=== PATIENT | female | born 1985 | race Caucasian/White ===

== ENCOUNTER 2019-09-28 17:20 | Emergency (ER) | payer OTHER, SELFPAY ==
[2019-09-28 17:27] VITALS: BP 155/80; PULSE 86; RESP 16; TEMP 36.3; O2SAT 99
--- NOTE | 2019-09-28 17:27 | ED_ITS ---
HPI - Fever General Chief Complaint: Fever Stated Complaint: flu like s/s, gege a+ Time Seen by Provider: 09/28/19 17:22 Source: patient Mode of arrival: ambulatory Limitations: no limitations History of Present Illness HPI Narrative: Patient is a 34-year-old female who presents with 3 to 4 days duration of chills body aches noting that her child was just diagnosed with influenza. Patient without vomiting or diarrhea. Patient on arrival resting comfortably in the room in no distress. Patient is taking [id number] medications with some improvement. Patient notes aching pain that is generalized Related Data Allergies Allergy/AdvReac Type Severity Reaction Status Date / Time No Known Allergies Allergy Verified 09/28/19 17:26 Review of Systems Review of Systems: All systems reviewed & are unremarkable except as noted in HPI and below PMFSH Family History Family History (Updated 06/07/10 @ 15:13 by DOCTOR UNKNOWN) Grandparent Diabetes mellitus Social History Social History Smoking status: Never smoker Second hand tobacco smoke exposure: No Alcohol intake: never Gender identity (if verbalized by the patient): Female Exam Narrative: Exam Narrative: GENERAL: Well-appearing, well-nourished, and in no acute distress. HEAD: Normocephalic, atraumatic. EYES: PERRLA and EOMI. ENT: Nares clear, no rhinorrhea or epistaxis. Mucous membranes moist. Oropharynx without tonsillar hypertrophy exudate or other lesions. NECK: Supple. No adenopathy or masses. CHEST: Clear to auscultation. No respiratory distress. No wheezes rales or rhonchi HEART: Regular rate and rhythm. No murmur heard. EXTREMITIES: Normal range of motion. No edema. SKIN: Warm, dry, no rash. NEURO: No focal deficits. Alert and oriented x3. PSYCH: Normal mood and affect. Course CHEMICAL DETECTION EXPERT/PA Physician Supervision Patient in the room in no distress aware of case findings treatment plan and diagnosis MDM - Fever MDM Narrative Medical decision making narrative: Patient with influenza in the room in no distress will be discharged home with symptomatic treatment provided with reasons to return Discharge Plan Discharge Clinical Impression: Influenza Patient Disposition: Home, Self-Care Condition: Stable Instructions: Antibiotic Form, Viral Syndrome (ED) Additional Instructions: Follow up with your primary care provider within 5-7 days. Go to ER for shortness of breath, difficulty breathing, chest pain, fever/chills, weakness, nauseau/vomitting, etc. or any other concerns. Stay well-hydrated Take any prescribed medications as directed. Follow patient education sheets If you do not have a drug allergy to tylenol or motrin and can tolerate it then take tylenol or motrin as needed for discomfort/pain. Prescriptions: New ibuprofen [IBU] 600 mg tablet 600 mg PO Q6H PRN (Reason: fever or pain) Qty: 7 RF: 0 Follow-up/Referrals: UNKNOWN,DOCTOR [Primary Care Provider] -
[2019-09-28 18:00] VITALS: RESP 18
== END 2019-09-28 18:02 | disposition home or self-care (01) ==
PROVIDERS: Emergency Provider Emergency Medicine
DX: J10.1 Influenza due to other identified influenza virus with other respiratory manifestations (principal)
CPT/HCPCS: 87804; 99283

== ENCOUNTER 2021-02-09 00:12 | Emergency (ER) | payer OTHER, SELFPAY ==
[2021-02-09 00:35] VITALS: BP 187/106; PULSE 63; RESP 14; TEMP 37.1; O2SAT 100
--- NOTE | 2021-02-09 00:45 | ECG_ITS ---
Measurements Intervals [place] Rate: 63 P: 45 RI: 185 QRS: 52 QRSD: 90 T: 30 QT: 391 QTc: 402 Interpretive Statements SINUS RHYTHM BASELINE WANDER- V3 NORMAL ECG Electronically Signed On 02-09-2021 6:02:16 CDT by Erick Bonilla D.O.
[2021-02-09 02:31] VITALS: BP 130/76; PULSE 67; RESP 18; O2SAT 100
--- NOTE | 2021-02-09 02:54 | ED.RECABL ---
HPI - Recheck/Abnormal Lab/Rx General Chief Complaint: Recheck/Abnormal Lab/Rx Stated Complaint: Dizzy, MEDEIROS, High bp Time Seen by Provider: 02/09/21 02:26 Source: patient and RN notes reviewed Mode of arrival: ambulatory Limitations: no limitations History of Present Illness HPI narrative: This is a 36 year old female who presents for evaluation of dizziness. Patient reports she has been having intermittent episode of headache and lightheadness. This has been presents for several days. She reports her symptoms are worse when she is working at [employer]. She denies having headache currently. She denies chest pain , nausea, vomiting or shortness of breath. She does not have primary care provider and she denies history of hypertension. On review of her last ER visit 1 year ago her BP was in 150s. Related Data Allergies Allergy/AdvReac Type Severity Reaction Status Date / Time No Known Allergies Allergy Verified 09/28/19 17:26 Review of Systems Review of Systems: All systems reviewed & are unremarkable except as noted in HPI and below PMFSH Past Medical History Medical History (Updated 02/09/21 @ 05:13 by Vicky Romo MD) Patient denies medical problems Family History Family History (Updated 06/07/10 @ 15:13 by DOCTOR UNKNOWN) Grandparent Diabetes mellitus Social History Social History Smoking status: Never smoker Second hand tobacco smoke exposure: No Alcohol intake: never Gender identity (if verbalized by the patient): Female Exam Const: General: no acute distress and alert Orientation/consciousness: patient oriented x3 Eyes: EOM: EOMs intact bilaterally Chest: Chest palpation & inspection: normal inspection of the chest Resp: Effort & Inspection: normal respiratory effort and no retractions Auscultation: clear to auscultation bilaterally Cardio: Rate: regular rate Rhythm: regular rhythm Heart sounds: no murmurs GI: GI Palp: Yes Soft to palpation, No Tenderness to palpation present (GI) and No Guarding due to palpation present (GI) Auscultation: normal bowel sounds Skin: General skin exam: normal color Rashes: no rashes Neuro: General: patient oriented x3, moves all extremities and CN's II-XI intact bilaterally Psych: Mental Status: mental status grossly normal Affect: normal affect Course Reevaluation(s) Reevaluation #1: PAtient's blood pressure has been in 140s and 130s. Currently BP is 133/85. I discussed with patient that she will need to get established with Primary care physician. Date: 02/09/21 Time: 05:09 Vital Signs Vital signs: Vital Signs Temperature 98.8 F 02/09/21 00:35 Pulse Rate 63 02/09/21 00:35 Respiratory Rate 14 02/09/21 00:35 Blood Pressure 187/106 H 02/09/21 00:35 Pulse Oximetry 100 02/09/21 00:35 Temperature 98.8 F 02/09/21 00:35 Pulse Rate 60 02/09/21 05:46 Respiratory Rate 18 02/09/21 05:46 Blood Pressure 151/98 H 02/09/21 05:46 Pulse Oximetry 98 02/09/21 05:46 MDM - Recheck/Abnormal Lab/Rx Lab Data Attestation: I reviewed the patient's lab results. Result diagrams: 02/09/21 02:57 02/09/21 02:57 Labs: Lab Results 02/09/21 02/09/21 Range/Units 02:57 02:57 WBC 7.8 (4.5-10.0) K/mm3 RBC 4.86 (4.2-5.4) M/mm3 Hgb 13.9 (12.0-15.0) g/dL Hct 42.3 (37.0-47.0) % MCV 87.0 (80-100) fl MCH 28.6 (26-34) pg MCHC 32.9 (32-36) g/dl RDW 12.1 (11.5-14.5) % Plt Count 242 (150-375) k/mm3 MPV 10.6 H (7.4-10.4) fl Immature Gran % (Auto) 0.3 (0-0.5) % Neut % (Auto) 52.8 (45.5-73.1) % Lymph % (Auto) 38.0 (18.3-44.2) % [place] % (Auto) 6.6 (2.6-8.5) % Eos % (Auto) 1.7 (0-4.4) % Baso % (Auto) 0.6 (0.2-1.2) % Lymph # (Auto) 2.98 (0.9-3.2) K/mm3 [place] # (Auto) 0.5 (0.1-0.6) K/mm3 Eos # (Auto) 0.1 (0-0.3) K/mm3 Baso # (Auto) 0.1 (0.0-0.1) K/mm3 Abs Im
[2021-02-09 03:06] LABS: Basophils Absolute Auto 0.1 K/mm3 (0.0-0.1); Basophils Percent Auto 0.6 % (0.2-1.2); Eosinophils Absolute Auto 0.1 K/mm3 (0-0.3); Eosinophils Percent Auto 1.7 % (0-4.4); Hematocrit 42.3 % (37.0-47.0); Hemoglobin 13.9 g/dL (12.0-15.0); Immature Granulocyte Absolute 0.02 K/mm3 (0.00-0.031); Immature Granulocyte Percent A 0.3 % (0-0.5); Lymphocytes Absolute Auto 2.98 K/mm3 (0.9-3.2); Mean Corpuscular HGB Conc 32.9 g/dl (32-36); Mean Corpuscular Hemoglobin 28.6 pg (26-34); Mean Platelet Volume 10.6 fl (7.4-10.4); Monocytes Absolute Auto 0.5 K/mm3 (0.1-0.6); Monocytes Percent Auto 6.6 % (2.6-8.5); Neutrophils Absolute Auto 4.1 K/mm3 (1.3-6.7); Neutrophils Percent Auto 52.8 % (45.5-73.1); Platelet Count Result 242 k/mm3 (150-375); Red Blood Count 4.86 M/mm3 (4.2-5.4); Red Cell Distribution Width 12.1 % (11.5-14.5); White Blood Count 7.8 K/mm3 (4.5-10.0)
[2021-02-09 03:53] VITALS: BP 158/93; PULSE 61
[2021-02-09 03:54] VITALS: BP 171/98; PULSE 64
[2021-02-09 03:56] VITALS: BP 155/110; PULSE 67
[2021-02-09 04:23] LABS: Alanine Aminotransferase 21 U/L (4-35); Albumin Level 4.3 g/dL (3.5-5.1); Alkaline Phosphatase 72 U/L (38-126); Anion Gap 8 mmol/L (8-16); Aspartate Amino Transferase 37 U/L (14-36); Bilirubin,Total 0.4 mg/dL (0.2-1.3); Blood Urea Nitrogen 8 mg/dL (7-17); Calcium 9.6 mg/dL (8.4-10.2); Carbon Dioxide 28 mmol/L (22-30); Chloride 104 mmol/L (98-107); Estimated CRCL calculation 108 ml/min; Estimated Glomerular Filt Rate > 60; Glucose 94 mg/dL (65-105); Potassium 3.3 mmol/L (3.4-5.0); Sodium 140 mmol/L (137-145)
[2021-02-09] MEDS: POTASSIUM CHLORIDE 20 MEQ TABLET PO (05:22)
[2021-02-09 05:46] VITALS: BP 151/98; PULSE 60; RESP 18; O2SAT 98
== END 2021-02-09 06:04 | disposition home or self-care (01) ==
PROVIDERS: Emergency Provider General Practice
DX: I10 Essential (primary) hypertension (principal)
CPT/HCPCS: 36415; 80053; 81025; 85025; 93005; 99283; A9270

== ENCOUNTER 2021-04-13 22:31 | Emergency (ER) | payer OTHER, SELFPAY ==
--- NOTE | ~2021-04-13 | CT_ITS ---
EXAMINATION: CT abdomen pelvis wo con EXAM DATE: 04/14/2021 02:28 INDICATION: Hematuria. TECHNIQUE: Spiral CT of the abdomen and pelvis was performed without contrast. Axial, coronal and sag ittal images were reviewed. The dose-length product (DLP) for this examination was 757.65 mGy-cm. T he exposure was tailored according to patient size (auto mA exposure control), and iterative reconstr uction (ASIR) was used as additional dose reduction technique. There is no prior study for compariso n. FINDINGS: There is no nephrolithiasis or hydronephrosis. The uterus is anteverted and morphological ly normal. The ovaries are unremarkable. The bladder is unremarkable. The liver, spleen, adrenal gl ands and pancreas are unremarkable. There are cholecystectomy clips. There is no retroperitoneal or pelvic lymphadenopathy. Small umbilical fat-containing hernia. The appendix is normal. The stomach and small bowel are unremarkable. There is expected amount of c olonic stool. No free intraperitoneal gas. The heart is normal in size. There are no pericardial or pleural effusions. The lung bases are unremarkable. There are no osteoblastic or osteolytic les ions identified. IMPRESSION: No nephrolithiasis, hydronephrosis or acute intra-abdominal findings. Reviewed, dictated and finalized at location B. IMPRESSION: No nephrolithiasis, hydronephrosis or acute intra-abdominal finding s.
[2021-04-13 22:50] VITALS: BP 124/80; PULSE 68; RESP 16; TEMP 36.3; O2SAT 100
[2021-04-13 23:28] LABS: Add Urine Microscopic? YES; Appearance Urine Clear (Clear); Bacteria Urine Trace /hpf; Bilirubin Urine Negative (Negative); Blood Urine 2+ (Negative); Color Urine Straw (Yellow); Glucose Urine UA Negative (Negative); Ketones Urine Negative (Negative); Leukocyte Esterase Ur 3+ LEU/UL (Negative); Mucus Urine Rare /lpf; Nitrate Urine Negative (Negative); Protein Urine Negative (Negative); RBC Urine 0-2 /hpf (0-2); Specific Grav Ur 1.009 (1.001-1.035); Squamous Epithelial Cell Urine Few /hpf (Few); Urobilinogen Urine Negative mg/dL (<2.0); WBC Urine 0-3 /hpf
[2021-04-14 01:21] VITALS: BP 112/56; PULSE 61; RESP 15; O2SAT 98
--- NOTE | 2021-04-14 01:22 | ED.FEMALEGU ---
HPI - Female Genitourinary General Chief complaint: Urogenital-Female Stated complaint: uti Time Seen by Provider: 04/14/21 01:22 Source: patient Mode of arrival: ambulatory Limitations: no limitations History of Present Illness HPI Narrative: Patient is a 36-year-old female who presents for evaluation of dysuria and hematuria. Patient is also reporting urinary frequency and is concerned she has a urinary tract infection. Patient reports mild suprapubic pain as well as bilateral flank pain greater on the right than on the left. Pain is dull, aching in nature. No fever, chills, nausea or vomiting. No upper abdominal pain or chest pain. No vaginal discharge or vaginal bleeding. No history of sexually transmitted infection. Patient states her symptoms began 4 days ago and have progressed since that time. Patient is not on any antibiotic therapy. She denies history of nephrolithiasis. Related Data Allergies Allergy/AdvReac Type Severity Reaction Status Date / Time No Known Allergies Allergy Verified 04/14/21 01:21 Review of Systems Review of Systems: CONSTITUTIONAL: Denies fever, chills, or sweats. EYES: Denies visual changes, redness, or discharge. ENT: Denies rhinorrhea, congestion, sore throat, or otalgia. CARDIOVASCULAR: Denies chest pain, palpitations, or edema. RESPIRATORY: Denies cough or dyspnea. GASTROINTESTINAL: Reports suprapubic abdominal pain, denies nausea, vomiting, or diarrhea. GENITOURINARY: Reports dysuria and hematuria SKIN: Denies rash or itching. MUSCULOSKELETAL: Reports bilateral flank pain, denies joint pain, or myalgia. NEUROLOGIC: Denies headache, numbness, or weakness. PSYCHIATRIC: Denies anxiety or depression. [facility] Past Medical History Medical History Patient denies medical problems Family History Family History Grandparent Diabetes mellitus Social History Social History Smoking status: Never smoker Second hand tobacco smoke exposure: No Alcohol intake: never Gender identity (if verbalized by the patient): Female Exam Narrative: GENERAL: Awake, alert, conversant HEAD: Normocephalic, atraumatic. EYES: PERRLA and EOMI. ENT: Nares clear, no rhinorrhea or epistaxis. Mucous membranes moist. NECK: Supple. CHEST: No respiratory distress, breathing even and non labored HEART: Regular rate, sinus rhythm ABDOMEN:Non distended, mild suprapubic tenderness on exam without rebound, rigidity or guarding, mild bilateral flank tenderness, greater on the right than on the left EXTREMITIES: Normal range of motion. No edema. SKIN: Warm, dry, no rash. NEURO:No focal deficits. Alert and oriented x3 Course Vital Signs Vital signs: Vital Signs Temperature 36.3 C L 04/13/21 22:50 Pulse Rate 68 04/13/21 22:50 Respiratory Rate 16 04/13/21 22:50 Blood Pressure 124/80 04/13/21 22:50 Pulse Oximetry 100 04/13/21 22:50 Temperature 36.3 C L 04/13/21 22:50 Pulse Rate 66 04/14/21 02:56 Respiratory Rate 15 04/14/21 02:56 Blood Pressure 116/79 04/14/21 02:56 Pulse Oximetry 100 04/14/21 02:56 MDM - Female Genitourinary MDM Narrative Medical decision making narrative: Patient presenting for evaluation of suprapubic pain as well as flank pain in the setting of dysuria and hematuria. The time of initial assessment, ABCs are intact and vital signs are stable. Patient is afebrile. No signs of severe sepsis or septic shock. No leukocytosis. Urinalysis with leukocyte esterase and blood present in conjunction with the patient's symptoms is consistent with urinary tract infection. CT scan was obtained and there is no evidence of nephrolithiasis, renal abscess or other acute abnormality. Patient was given a dose of IV antibiotics prior to discharge. She had no nausea or vomiting in the emergency department. She was
[2021-04-14 02:08] LABS: Basophils Absolute Auto 0.1 K/mm3 (0.0-0.1); Basophils Percent Auto 0.5 % (0.2-1.2); Eosinophils Absolute Auto 0.1 K/mm3 (0-0.3); Eosinophils Percent Auto 0.9 % (0-4.4); Hematocrit 37.9 % (37.0-47.0); Hemoglobin 12.8 g/dL (12.0-15.0); Immature Granulocyte Absolute 0.02 K/mm3 (0.00-0.031); Immature Granulocyte Percent A 0.2 % (0-0.5); Lymphocytes Absolute Auto 3.41 K/mm3 (0.9-3.2); Lymphocytes Percent Auto 35.5 % (18.3-44.2); Mean Corpuscular HGB Conc 33.8 g/dl (32-36); Mean Platelet Volume 10.1 fl (7.4-10.4); Monocytes Absolute Auto 0.6 K/mm3 (0.1-0.6); Monocytes Percent Auto 6.1 % (2.6-8.5); Neutrophils Absolute Auto 5.4 K/mm3 (1.3-6.7); Neutrophils Percent Auto 56.8 % (45.5-73.1); Platelet Count Result 197 k/mm3 (150-375); Red Blood Count 4.26 M/mm3 (4.2-5.4); Red Cell Distribution Width 12.3 % (11.5-14.5); White Blood Count 9.6 K/mm3 (4.5-10.0)
[2021-04-14] MEDS: SODIUM CHLORIDE 0.9% IV 1,000 ML 999 ML IV CONT (02:16)
[2021-04-14] MEDS: ACETAMINOPHEN 500 MG TABLET 1000 MG PO (02:17)
--- NOTE | 2021-04-14 02:21 | PC.NURSE ---
Pt to CT scan via stretcher this time, fluids infusing.
[2021-04-14 02:23] LABS: Anion Gap 8 mmol/L (8-16); Blood Urea Nitrogen 11 mg/dL (7-17); Calcium 9.4 mg/dL (8.4-10.2); Carbon Dioxide 25 mmol/L (22-30); Chloride 105 mmol/L (98-107); Estimated CRCL calculation 96 ml/min; Estimated Glomerular Filt Rate > 60; Glucose 99 mg/dL (65-110); Potassium 3.7 mmol/L (3.4-5.0); Sodium 138 mmol/L (137-145)
[2021-04-14 02:56] VITALS: BP 116/79; PULSE 66; RESP 15; O2SAT 100
[2021-04-14 03:58] VITALS: BP 117/89; PULSE 71; RESP 15; O2SAT 99
== END 2021-04-14 03:59 | disposition home or self-care (01) ==
PROVIDERS: Emergency Medicine; Emergency Provider Emergency Medicine; PCP Family Medicine
DX: N39.0 Urinary tract infection, site not specified (principal)
CPT/HCPCS: 36415; 74176; 80048; 81001; 81025; 85025; 96361; 96365; 99284; A9270; J0696; J7030

== ENCOUNTER 2021-07-25 12:35 | Emergency (ER) | payer OTHER, SELFPAY ==
--- NOTE | ~2021-07-25 | XR_ITS ---
EXAMINATION: XR chest 1V portable DATE: 07/25/2021 15:38 INDICATION: Cough TECHNIQUE: frontal view of the chest was obtained. COMPARISON: None FINDINGS: Small airspace opacities at the lateral aspect of the bilateral lower lung zones project over the rig ht anterior fourth rib and between the anterior left fourth and fifth ribs. No pulmonary edema, pleur al effusion or pneumothorax. The cardiomediastinal silhouette is normal. Cholecystectomy clips in rig ht upper quadrant. IMPRESSION: 1. Small focal airspace opacities in the bilateral lower lung zones which could represent atelectasis and/or pneumonia. Recommend radiographic follow-up to resolution. Reviewed, dictated and finalized at location H. [facility] IMPRESSION: 1. Small focal airspace opacities in the bilateral lower lung zones which could represent atelectasis and/or pneumonia. Recommend radiographic follow-up to re solution.
[2021-07-25 12:45] VITALS: BP 147/103; PULSE 89; RESP 18; TEMP 36.8; O2SAT 97
[2021-07-25 14:46] VITALS: BP 115/83; PULSE 77; RESP 18; O2SAT 99
--- NOTE | 2021-07-25 15:35 | ED.GENADULT ---
HPI - General Adult General Chief complaint: Upper Respiratory Infection Stated complaint: body aches, coughing, chills Time Seen by Provider: 07/25/21 14:36 Source: patient Mode of arrival: ambulatory Limitations: no limitations History of Present Illness HPI narrative: Patient presents for evaluation of respiratory symptoms for the last 7 days. She reports productive cough of yellow sputum with pleuritic chest pain. She initially experienced fevers but that only lasted for about two days. She has experienced chills, nausea, vomiting, diarrhea and generalized body aches.. She does have a sore throat but attributes this to coughing. She has two coworkers and several family members who have COVID. She has not received COVID vaccination. She has not been taking any medications to assist with her symptoms. Related Data Allergies Allergy/AdvReac Type Severity Reaction Status Date / Time No Known Allergies Allergy Verified 04/14/21 01:21 Review of Systems Review of Systems: CONSTITUTIONAL: Reports fever and chills. EYES: Denies visual changes, redness, or discharge. ENT: Reports sore throat. Denies rhinorrhea, congestion, or otalgia. CARDIOVASCULAR: Reports pleuritic chest pain. Denies palpitations, or edema. RESPIRATORY: Reports productive cough of green sputum. GASTROINTESTINAL: Reports nausea, vomiting, diarrhea. Denies abdominal pain. GENITOURINARY: Denies dysuria or hematuria. SKIN: Denies rash or itching. MUSCULOSKELETAL: Reports generalized body aches NEUROLOGIC: Denies headache, numbness, dizziness, or weakness. PSYCHIATRIC: Denies anxiety or depression. [facility] Past Medical History Medical History (Updated 07/25/21 @ 17:27 by DEBRA BarajasP, ) Patient denies medical problems Surgical History Surgical History History of cholecystectomy History of tubal ligation Family History Family History Grandparent Diabetes mellitus Social History Social History (Updated 07/25/21 @ 15:39 by [place] Stephen [facility], ) Smoking status: Never smoker Second hand tobacco smoke exposure: No Alcohol intake: never Substance use: never Living arrangements: with family Gender identity (if verbalized by the patient): Female Sexual Orientation (if Verbalized by the Patient): Straight or Heterosexual Spiritual care concerns: No Exam Narrative: GENERAL: Well-appearing, well-nourished, and in no acute distress. HEAD: Normocephalic, atraumatic. EYES: PERRLA and EOMI. ENT: Nares clear, no rhinorrhea or epistaxis. Mucous membranes moist. Oropharynx without tonsillar hypertrophy exudate or other lesions. Bilateral TMs pearly winn nonbulging NECK: Supple. No adenopathy or masses. No carotid bruits or JVD CHEST: Clear to auscultation. Cough present on exam. No respiratory distress. No wheezes rales or rhonchi HEART: Regular rate and rhythm. No murmur heard. Normal peripheral pulses. ABDOMEN: Soft, nontender, nondistended, normal active bowel sounds. EXTREMITIES: Normal range of motion. No edema. SKIN: Warm, dry, no rash. NEURO: No focal deficits. Alert and oriented x3. PSYCH: Normal mood and affect. Course Course Emergency Course: This is a 36-year-old female present with complaints of respiratory symptoms. Chest x-ray was consistent with pneumonia. Influenza was positive. Strep was negative. Evidence of pneumonia on chest x-ray could be viral but will cover with oral abx in event there is bacterial component. Will dc with azithromycin, amoxicillin and zofran. She should follow up outpatient for further evaluation and treatment and return for worsening symptoms. Pt in agreement with plan of care. Vital Signs Vital signs: Vital Signs Temperature 36.8 C 07/25/21 12:45 Pulse Rate 89 07/25/21 12:45 Respiratory Rate 18 07/25/21 12:45 Blood Pressure 147/103 H 07/25
[2021-07-25 17:00] VITALS: BP 136/93; PULSE 80; RESP 16; O2SAT 97
[2021-07-25 18:00] VITALS: BP 130/92; PULSE 78; RESP 16; O2SAT 98
[2021-07-26 19:04] LABS: SARS-CoV-2 RNA PCR Positive
== END 2021-07-25 18:00 | disposition home or self-care (01) ==
PROVIDERS: Emergency Provider Nurse Practitioner
DX: U07.1 COVID-19 (principal); J10.00 Influenza due to other identified influenza virus with unspecified type of pneumonia; R91.8 Other nonspecific abnormal finding of lung field
CPT/HCPCS: 71045; 87081; 87804; 87880; 99283; C9803; U0003; U0005

== ENCOUNTER 2022-06-14 15:47 | Emergency (ER) | payer OTHER, SELFPAY ==
[2022-06-14 15:53] VITALS: BP 139/95; PULSE 90; RESP 14; TEMP 37.1; O2SAT 100
[2022-06-14 16:43] LABS: Influenza A QL RT-PCR Negative (Negative); Influenza B QL RT-PCR Negative (Negative); SARS-CoV-2 RNA PCR Positive
--- NOTE | 2022-06-14 17:23 | ED.URI ---
HPI - URI/Sore Throat General Chief Complaint: Upper Respiratory Infection Stated Complaint: URI since yesterday Time Seen by Provider: 06/14/22 17:12 History of Present Illness HPI Narrative: 37-year-old female presents to the emergency room for evaluation of fever, body aches, cough, sinus congestion, headaches since yesterday. Patient states that she has not been vaccinated for the flu. Has been taking Tylenol intermittently for her symptoms. Related Data Allergies Allergy/AdvReac Type Severity Reaction Status Date / Time No Known Allergies Allergy Verified 04/14/21 01:21 Review of Systems Review of Systems: CONSTITUTIONAL: Reports fever EYES: Denies visual changes, redness, or discharge. ENT: Reports rhinorrhea, congestion, and sore throat CARDIOVASCULAR: Denies chest pain, palpitations, or edema. RESPIRATORY: Reports cough GASTROINTESTINAL: Denies abdominal pain, nausea, vomiting, or diarrhea. GENITOURINARY: Denies dysuria or hematuria. SKIN: Denies rash or itching. MUSCULOSKELETAL: Reports myalgias NEUROLOGIC: Reports headache PSYCHIATRIC: Denies anxiety or depression. PMFSH Past Medical History Medical History Patient denies medical problems Surgical History Surgical History History of cholecystectomy History of tubal ligation Family History Family History Grandparent Diabetes mellitus Social History Social History Smoking status: Never smoker Second hand tobacco smoke exposure: No Alcohol intake: never Substance use: never Gender identity (if verbalized by the patient): Female Sexual Orientation (if Verbalized by the Patient): Straight or Heterosexual Spiritual care concerns: No Exam Narrative: GENERAL: Well-appearing, well-nourished, no physical limitations, and in no acute distress. HEAD: Normocephalic, atraumatic. EYES: Conjunctivae normal, PERRLA and EOMI. ENT: External nose normal, Nares clear, no rhinorrhea or epistaxis. Mucous membranes moist. Oropharynx without tonsillar hypertrophy exudate or other lesions. External ears normal, bilateral TMs normal bilaterally NECK: Supple. No adenopathy or masses. CHEST: Clear to auscultation. No respiratory distress. No wheezes rales or rhonchi. HEART: Regular rate and rhythm. No murmur heard. Normal peripheral pulses. BACK: No cervical/thoracic/lumbar tenderness, step-offs, bony abnormality; FROM EXTREMITIES: Normal range of motion. No edema. No clubbing or cyanosis SKIN: Warm, dry, no rash. No noted wounds NEURO: No focal deficits. Alert and oriented x3. MAEW. CN's II-XI intact bilaterally, normal gait PSYCH: Cooperative. Normal mood and affect. Course Vital Signs Vital signs: Vital Signs Temperature 37.1 C 06/14/22 15:53 Pulse Rate 90 06/14/22 15:53 Respiratory Rate 14 06/14/22 15:53 Blood Pressure 139/95 H 06/14/22 15:53 Pulse Oximetry 100 06/14/22 15:53 Oxygen Delivery Room Air 06/14/22 15:53 Temperature 37.1 C 06/14/22 15:53 Pulse Rate 90 06/14/22 15:53 Respiratory Rate 14 06/14/22 15:53 Blood Pressure 139/95 H 06/14/22 15:53 Pulse Oximetry 100 06/14/22 15:53 Oxygen Delivery Room Air 06/14/22 15:53 MDM - URI/Sore Throat Lab Data Labs: Lab Results 06/14/22 Range/Units 16:00 Influenza A (RT-PCR) Negative (Negative) Influenza B (RT-PCR) Negative (Negative) SARS-CoV-2 RNA (RT-PCR) Positive A Discharge Plan Discharge Clinical Impression: COVID Patient Disposition: Home, Self-Care Condition: Stable Instructions: Antibiotic Form, COVID-19 (Coronavirus Disease 2019) (ED) Additional Instructions: Alternate Tylenol and ibuprofen as needed every 4 hours. May take [id number] Mucinex DM for your cough. Recommend prashanth
[2022-06-14 17:26] VITALS: BP 137/94; PULSE 82; PULSE 86; RESP 16; TEMP 37.7; O2SAT 100
== END 2022-06-14 17:30 | disposition home or self-care (01) ==
LOC: ANHED 17:21
PROVIDERS: Emergency Medicine; Emergency Provider Nurse Practitioner Family
DX: U07.1 COVID-19 (principal)
CPT/HCPCS: 87636; 99283

== ENCOUNTER 2022-09-28 08:12 | Emergency (ER) | payer OTHER, SELFPAY ==
[2022-09-28 08:33] VITALS: BP 158/96; PULSE 70; RESP 12; TEMP 36.6; O2SAT 100
--- NOTE | 2022-09-28 08:48 | ED.GENADULT ---
HPI - General Adult General Chief complaint: Back Pain/Injury Stated complaint: BACK PAIN Time Seen by Provider: 09/28/22 08:18 History of Present Illness HPI narrative: 37-year-old female presenting to the emergency department for evaluation of low back pain and suprapubic abdominal pain. 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 Patient states she does not have any blood in her urine denies any pain with urination but does have suprapubic abdominal pain. Patient reports she does have a history of urinary tract infections Patient denies any associated numbness or weakness. Patient reports she does have a prior history of cholecystectomy and a tubal ligation. Related Data Allergies Allergy/AdvReac Type Severity Reaction Status Date / Time No Known Allergies Allergy Verified 04/14/21 01:21 Review of Systems Review of Systems: CONSTITUTIONAL: Denies fever, chills, or sweats. EYES: Denies visual changes, redness, or discharge. ENT: Denies rhinorrhea, congestion, sore throat, or otalgia. CARDIOVASCULAR: Denies chest pain, palpitations, or edema. RESPIRATORY: Denies cough or dyspnea. GASTROINTESTINAL: See HPI GENITOURINARY: Denies dysuria or hematuria. SKIN: Denies rash or itching. MUSCULOSKELETAL: Denies back pain, joint pain, or myalgia. NEUROLOGIC: Denies headache, numbness, or weakness. PMFSH Past Medical History Medical History Patient denies medical problems Surgical History Surgical History History of cholecystectomy History of tubal ligation Family History Family History Grandparent Diabetes mellitus Social History Social History Smoking status: Never smoker Second hand tobacco smoke exposure: No Alcohol intake: never Substance use: never Living arrangements: with family Gender identity (if verbalized by the patient): Female Sexual Orientation (if Verbalized by the Patient): Straight or Heterosexual Spiritual care concerns: No Exam Narrative: APPEARANCE: Well appearing, no pain, no distress, well-nourished. HEAD: normocephalic, atraumatic. EYES: PERRLA/EOMI, conjunctivae clear. NOSE: Normal no drainage NECK: Supple. No adenopathy, no masses. RESPIRATORY: Airway patent, respirations nonlabored. Clear to auscultation bilaterally, no rales, rhonchi, wheezing. CARDIOVASCULAR: Regular rate and rhythm without murmurs rubs or gallops. ABDOMINAL: Soft, nondistended, normal bowel sounds, suprapubic tenderness to palpation, bilateral CVA tenderness MUSCULOSKELETAL: Moves all extremities. Strength/ROM intact, No edema, No calf tenderness. NEURO: Alert. Cranial nerves II through XII intact. Grossly intact SKIN: Warm, dry. Normal Color Course Course Emergency Course: 37-year-old female with suprapubic tenderness and bilateral CVA tenderness with history of UTI. UA is being ordered. Patient declined any medications for pain control this time. 9:38 AM patient did have trace leuk esterase on her UA. Urine culture was ordered. Due to her having a significant history of urinary tract infections along with suprapubic tenderness to palpation patient will be started on antibiotics for a urinary tract infection. Rest of patient's exam was benign. Low concern for colitis, appendicitis, ovarian torsion or ovarian cyst. Patient was updated on the plan for treatment. All question concerns were addressed. Patient was encouraged to have close follow-up with her primary care physician. Patient was also educated on reasons to return to the emergency department. Vital Signs Vital signs: Vital Signs Temperature 97.8 F 09/28/22 08:33 Pulse Rate 70 09/28/22 08:33 Respiratory
[2022-09-28 09:16] LABS: Appearance Urine Clear (Clear); Bacteria Urine None Seen /hpf; Bilirubin Urine Negative (Negative); Blood Urine Negative (Negative); Color Urine Yellow (Yellow); Glucose Urine UA Negative (Negative); Ketones Urine Negative (Negative); Leukocyte Esterase Ur Trace LEU/UL (Negative); Nitrate Urine Negative (Negative); Non Pathogenic Casts 0-2; Protein Urine Negative (Negative); RBC Urine 0-2 /hpf (0-2); Specific Grav Ur 1.016 (1.001-1.035); Squamous Epithelial Cell Urine Occasional /hpf (Few); Urobilinogen Urine 0.2 mg/dL (<2.0); WBC Urine 0-5 /hpf; pH Urine 7.5 (5.0-9.0)
[2022-09-28] MEDS: NITROFURANTOIN MONOHYD MACROCR 100 MG CAP PO (09:46)
[2022-09-28 10:00] VITALS: BP 150/90; PULSE 60; RESP 12; O2SAT 98
[2022-09-28 10:05] LABS: Add Urine Microscopic? YES
== END 2022-09-28 10:02 | disposition home or self-care (01) ==
PROVIDERS: Emergency Provider Emergency Medicine
DX: N30.00 Acute cystitis without hematuria (principal)
CPT/HCPCS: 81001; 81025; 87086; 99283; A9270

== ENCOUNTER 2023-05-15 15:19 | Outpatient (CLI) | payer OTHER, SELFPAY ==
--- NOTE | ~2023-05-15 | XR_ITS ---
XR knee LT min 4V DATE: 05/15/2023 15:55 INDICATION: Bilateral knee pain. No injury. TECHNIQUE: [place] and standing AP, PA and lateral views COMPARISON: None FINDINGS: No fracture or dislocation or joint effusion. No periosteal reaction or bone destruction. J oint spaces are preserved. No radiopaque intra-articular loose body or chondrocalcinosis. IMPRESSION: Negative Reviewed, dictated and finalized at location B. IMPRESSION: Negative
--- NOTE | ~2023-05-15 | XR_ITS ---
XR knee RT min 4V DATE: 05/15/2023 15:55 INDICATION: Bilateral knee pain TECHNIQUE: [place], standing AP, PA and lateral views COMPARISON: None FINDINGS: No fracture or dislocation or joint effusion. No periosteal reaction or bone destruction. J oint spaces are well preserved. No radiopaque intra-articular loose body or chondrocalcinosis. Mild lucency at the anterior tibial tuberosity with overlying soft tissue swelling or any periosteal reaction or bone destruction, likely anatomic variation. IMPRESSION: No significant abnormality Reviewed, dictated and finalized at location B. IMPRESSION: No significant abnormality
== END 2023-05-15 15:20 | disposition home or self-care (01) ==
PROVIDERS: PCP Nurse Practitioner Family; Visit Provider Nurse Practitioner Family
DX: M25.562 Pain in left knee (principal)
CPT/HCPCS: 73564

== ENCOUNTER 2024-01-02 13:42 | Emergency (ER) | payer OTHER, SELFPAY ==
--- NOTE | ~2024-01-02 | CT_ITS ---
EXAMINATION: CT abdomen pelvis w con DATE: 01/02/2024 15:10 INDICATION: generalized abdomen pain/ n/v TECHNIQUE: Computed tomography (CT) of the abdomen and pelvis was performed with 100 mL Omnipaque-350 intravenous contrast. Automated exposure control and iterative reconstruction technique were employe d. The dose-length product was 850.69 mGy-cm. COMPARISON: 04/14/2021. FINDINGS: Lower thorax: Unremarkable Liver: Normal. Biliary/Gallbladder: Gallbladder is absent. Mild intra and extrahepatic duct dilation likely secondar y to cholecystectomy. Pancreas: No mass or duct dilation. Spleen: Normal. Adrenals:No mass. Kidneys: No suspicious mass, obstructing stone, or hydronephrosis. Bilateral subcentimeter hypodensit ies too small to characterize but likely represent cysts. GI tract: Minimal distal esophageal and gastric fundal wall edema. No small or large bowel dilation. Normal appendix. Mesentery/Peritoneum: No ascites, mass, or free air. Retroperitoneum: No mass. Pelvis: Large uterus, a chronic finding. Normal bilateral ovaries with simple cysts that require no a dditional evaluation. Normal urinary bladder. Soft Tissues: Small uncomplicated fat-containing umbilical hernia. Bones: No acute osseous finding. IMPRESSION: Mild esophagitis/gastritis. Otherwise, no acute abdominopelvic process detected. Reviewed, dictated and finalized at location K. IMPRESSION: Mild esophagitis/gastritis. Otherwise, no acute abdominopelvic process detected .
[2024-01-02 13:44] VITALS: BP 185/107; PULSE 71; RESP 18; TEMP 37; O2SAT 100
[2024-01-02 14:31] LABS: Influenza A QL RT-PCR Negative (Negative); Influenza B QL RT-PCR Negative (Negative); RSV RNA, RT-PCR Negative (Negative); SARS-CoV-2 RNA PCR Negative (Negative)
[2024-01-02 14:38] LABS: Basophils Percent Auto 0.3 % (0.2-1.2); Eosinophils Percent Auto 0.1 % (0-4.4); Hematocrit 41.4 % (37.0-47.0); Hemoglobin 14.3 g/dL (12.0-15.0); Immature Granulocyte Absolute 0.15 K/mm3 (0.00-0.031); Lymphocytes Absolute Auto 1.53 K/mm3 (0.9-3.2); Lymphocytes Percent Auto 10.4 % (18.3-44.2); Mean Corpuscular HGB Conc 34.5 g/dl (32-36); Mean Corpuscular Hemoglobin 30.4 pg (26-34); Mean Corpuscular Volume 88.1 fl (80-100); Mean Platelet Volume 10.1 fl (7.4-10.4); Monocytes Absolute Auto 0.4 K/mm3 (0.1-0.6); Monocytes Percent Auto 2.7 % (2.6-8.5); Neutrophils Absolute Auto 12.6 K/mm3 (1.3-6.7); Neutrophils Percent Auto 85.5 % (45.5-73.1); Platelet Count Result 299 k/mm3 (150-375); Red Cell Distribution Width 11.9 % (11.5-14.5); White Blood Count 14.7 K/mm3 (4.5-10.0)
--- NOTE | 2024-01-02 14:40 | ED.ABDPAIN ---
HPI - Abdominal Pain General Chief Complaint: Nausea/Vomiting/Diarrhea Stated Complaint: N/V dizziness, chills Time Seen by Provider: 01/02/24 14:23 Source: patient Mode of arrival: ambulatory Limitations: no limitations History of Present Illness HPI narrative: Syeda is a 38-year-old female patient presenting to the emergency room with complaints nausea, vomiting, and generalized abdominal pain that started yesterday. She reports she did have some slight diarrhea yesterday. Has felt feverish and complaining of some lightheadedness. She does not know how many times she has vomited since yesterday. Reports the pain and 8/10 and aching sensation. Denies any chance of . Denies any urinary or vaginal symptoms. Last bowel movement was yesterday. Related Data Allergies Allergy/AdvReac Type Severity Reaction Status Date / Time No Known Allergies Allergy Verified 01/02/24 14:08 Review of Systems Review of Systems: Pertinent positives per HPI. Patient denies any fever, chills, rash, headache, visual changes, dizziness, cough, runny nose, sore throat, shortness of breath, chest pain, palpitations, constipation, or any urinary issues. [facility] Past Medical History Medical History Patient denies medical problems Surgical History Surgical History History of cholecystectomy History of tubal ligation Family History Family History Grandparent Diabetes mellitus Social History Social History Smoking status: Never smoker Second hand tobacco smoke exposure: No Alcohol intake: never Substance use: never Living arrangements: with family Gender identity (if verbalized by the patient): Female Sexual Orientation (if Verbalized by the Patient): Straight or Heterosexual Spiritual care concerns: No Comments At the time of my signature, I reviewed and agree with the nursing past medical, surgical, social, and family history. There is no relevant family history pertinent to the patient complaint. Exam Narrative: General: Well-developed, obese, in no apparent distress. Head: Normocephalic, atraumatic. Cardio: Regular rate and rhythm, s1 and s2 normal, no murmur appreciated. Resp: Clear to auscultation bilaterally, no rhonchi, rales, wheezing or rubs. Abdomen: Soft, pliable, bowel sounds present in all quadrants, generalized tender to palpation, no organomegly, no CVAT tenderness. Course Course Emergency Course: Portions of this record may have been created with voice recognition software. Vital Signs Vital signs: Vital Signs Temperature 37.0 C 01/02/24 13:44 Pulse Rate 71 01/02/24 13:44 Respiratory Rate 18 01/02/24 13:44 Blood Pressure 185/107 H 01/02/24 13:44 Pulse Oximetry 100 01/02/24 13:44 Oxygen Delivery Room Air 01/02/24 13:44 Temperature 37.0 C 01/02/24 13:44 Pulse Rate 72 01/02/24 15:15 Respiratory Rate 20 01/02/24 15:15 Blood Pressure 175/95 H 01/02/24 15:15 Pulse Oximetry 100 01/02/24 15:15 Oxygen Delivery Room Air 01/02/24 13:44 Vital signs reviewed MDM - Abdominal Pain MDM Narrative Medical decision making narrative: At the time of visit patient is resting comfortably on the exam table. Patient appears to be nontoxic. Labs: CBC shows white blood cell count of 14.7, H&H of 14.3 and 41.4, platelet counts 299, does have a left-sided shift, chemistry shows sodium 136, potassium of 3.5, chloride 103, carbon dioxide of 23, BUN of 9, creatinine 0.6, GFR is greater than 60, mild elevation of liver function test with an AST of 55 and ALT of 52, alk-phos is normal at 73, lipase is 89, urinalysis shows 1+ ketones 6-10 red blood cells without leukocytes or bacteria seen, influenza, RSV, COVID testing are all negative, urinaly
[2024-01-02 14:43] LABS: Appearance Urine Clear (Clear); Bacteria Urine None Seen /hpf; Bilirubin Urine Negative (Negative); Blood Urine Trace (Negative); Color Urine Yellow (Yellow); Glucose Urine UA Negative (Negative); Ketones Urine 1+ mg/dL (Negative); Leukocyte Esterase Ur Negative LEU/UL (Negative); Nitrate Urine Negative (Negative); Non Pathogenic Casts 0-2; Protein Urine Negative (Negative); Specific Grav Ur 1.011 (1.001-1.035); Squamous Epithelial Cell Urine Occasional /hpf (Few); WBC Urine 0-5 /hpf (0-3)
[2024-01-02 14:48] LABS: Add Urine Microscopic? YES; Alanine Aminotransferase 52 U/L (6-35); Albumin Level 4.9 g/dL (3.5-5.1); Alkaline Phosphatase 73 U/L (38-126); Anion Gap 10 mmol/L (4-12); Aspartate Amino Transferase 55 U/L (14-36); Bilirubin,Total 0.8 mg/dL (0.2-1.3); Blood Urea Nitrogen 9 mg/dL (7-17); Calcium 9.3 mg/dL (8.4-10.2); Carbon Dioxide 23 mmol/L (22-30); Chloride 103 mmol/L (98-107); Estimated CRCL calculation 107 ml/min; Estimated Glomerular Filt Rate > 60; Glucose 109 mg/dL (65-110); Lipase 89 U/L (23-300); Potassium 3.5 mmol/L (3.4-5.0); Sodium 136 mmol/L (137-145)
[2024-01-02] MEDS: SODIUM CHLORIDE 0.9% IV 1,000 ML 999 ML IV CONT (14:48)
[2024-01-02] MEDS: ONDANSETRON INJ 4 MG/2 ML VIAL IV PUSH (14:48)
[2024-01-02] MEDS: MORPHINE SULFATE (*CRX) 4 MG/ML INJ IV PUSH (14:49)
[2024-01-02 15:15] VITALS: BP 175/95; PULSE 72; RESP 20; O2SAT 100
== END 2024-01-02 16:15 | disposition home or self-care (01) ==
PROVIDERS: Family Medicine; Student in an Organized Health Care Education/Training Program; Emergency Provider Nurse Practitioner Family; PCP Nurse Practitioner Family
DX: K29.00 Acute gastritis without bleeding (principal); Z20.822 Contact with and (suspected) exposure to COVID-19; Z90.49 Acquired absence of other specified parts of digestive tract
CPT/HCPCS: 36415; 74177; 80053; 81001; 81025; 83690; 85025; 87637; 96361; 96374; 96375; 99284; J2270; J2405; J7030; Q9967